=== PATIENT | male | born 1995 | race Caucasian/White ===

== ENCOUNTER → 2017-02-09 00:38 | Emergency (ER) | payer BC ==
[2017-02-09 02:20] LABS: Hematocrit 36 % (42-52); Hemoglobin 12.1 g/dl (14.0-18.0); Mean Corpuscular HGB Conc 34 g/dl (31-36); Mean Corpuscular Hemoglobin 31 pg (27-31); Mean Corpuscular Volume 92 fL (80-94); Mean Platelet Volume 9 um3 (7.4-10.4); Red Blood Count 3.86 10^6/ul (4.0-5.4); Red Cell Distribution Width 13 % (10.5-15); White Blood Count 9.4 10^3/ul (3.5-10.8)
[2017-02-09 02:33] LABS: Albumin 4.3 g/dL (3.2-5.2); BUN/Creatinine Ratio 9.9 (8-20); Calcium 8.8 mg/dL (8.6-10.3); EGFR Non-African American 107.3 (>60); Globulin 2.4 g/dL (2-4); Potassium 3.7 mmol/L (3.5-5.0); Total Bilirubin 0.4 mg/dL (0.2-1.0); Total Protein 6.7 g/dL (6.4-8.9)
--- NOTE | 2017-02-09 06:41 | ED ---
Lucy Barrett SooYoung, scribed for Allen Espinal MD on 02/09/17 at 0413 . Substance Abuse/Use - HPI Summary HPI Summary: LEVEL 5 CAVEAT - ETOH INTOXICATION, UNRESPONSIVE. A 21 y/o M presents to ED with ETOH intoxication. Per friend at bedside, pt did not have LOC; pt was gagging but not vomiting. She's unsure how much. Denies pt using drugs. 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 Infectious Disease History: No Infectious Disease History: Denies: Traveled Outside the [place] in Last 30 Days - Family History Family History: LEVEL 5 CAVEAT - ETOH INTOXICATION, UNRESPONSIVE. - Social History Occupation: Student Alcohol Use: Occasionally Substance Use Type: Reports: None Smoking Status (MU): Never Smoked Tobacco Review of Systems - ROS Summary Review of Systems Summary: LEVEL 5 CAVEAT - ETOH INTOXICATION, UNRESPONSIVE. Negative: Vomiting All Other Systems Reviewed And Are Negative: No Physical Exam - Summary Physical Exam Summary: The patient is well-nourished in no acute distress and in no acute pain. The skin is warm and dry and skin color reflects adequate perfusion. HEENT: The head is normocephalic and atraumatic. The pupils are equal and reactive. The conjunctivae are clear and without drainage. Nares are patent and without drainage. Mouth reveals moist mucous membranes and the throat is without erythema and exudate. The external ears are intact. The ear canals are patent and without drainage. The tympanic membranes are intact. Neck is supple with full range of motion and non-tender. There is no neck vein distension. Respiratory: Chest is non-tender. Lungs are clear to auscultation and breath sounds are symmetrical and equal. Cardiovascular: Heart is regular rate and rhythm. There is no murmur or rub auscultated. There is no peripheral edema and pulses are symmetrical and equal. Abdomen: The abdomen is soft and non-tender. There are normal bowel sounds heard in all four quadrants. Musculoskeletal: Extremities are non-tender with full range of motion. There is good capillary refill. There is no peripheral edema. Neurological: The patient has symmetrical motor strength in all four extremities. Cranial nerves are grossly intact. Triage Information Reviewed: Yes Vital Signs On Initial Exam: Initial Vitals BP 138/112 02/09/17 00:57 Vital Signs Reviewed: Yes - [place] Coma Scale Coma Scale Total: 14 Diagnostics - Vital Signs Vital Signs Temp Pulse Resp BP Pulse Ox 02/09/17 01:00 82 119/82 95 02/09/17 00:59 97.7 F 83 16 118/82 97 02/09/17 00:57 138/112 - Laboratory Lab Results: Lab Results 02/09/17 02/09/17 Range/Units 02:02 02:02 WBC 9.4 (3.5-10.8) 10^3/ul RBC 3.86 L (4.0-5.4) 10^6/ul Hgb 12.1 L (14.0-18.0) g/dl Hct 36 L (42-52) % MCV 92 (80-94) fL MCH 31 (27-31) pg MCHC 34 (31-36) g/dl RDW 13 (10.5-15) % Plt Count 180 (150-450) 10^3/ul MPV 9 (7.4-10.4) um3 Neut % (Auto) 85.4 H (38-83) % Lymph % (Auto) 9.8 L (25-47) % [place] % (Auto) 4.0 (1-9) % Eos % (Auto) 0.4 (0-6) % Baso % (Auto) 0.4 (0-2) % Absolute Neuts (auto) 8.1 H (1.5-7.7) 10^3/ul Absolute Lymphs (auto) 0.9 L (1.0-4.8) 10^3/ul Absolute Monos (auto) 0.4 (0-0.8) 10^3/ul Absolute Eos (auto) 0 (0-0.6) 10^3/ul Absolute Basos (auto) 0 (0-0.2) 10^3/ul Absolute Nucleated RBC 0 10^3/ul Nucleated RBC % 0 Sodium 138 (133-145) mmol/L Potassium 3.7 (3.5-5.0) mmol/L Chloride 106 (101-111) mmol/L Carbon Dioxide 25 (22-32) mmol/L Anion Gap 7 (2-11) mmol/L BUN 9 (6-24) mg/dL Creatinine 0.91 (0.67-1.17) mg/dL Est GFR ( Amer) 138.0 (>60) Est GFR (Non-Af Amer) 107.3 (>60) BUN/Creatinine Ratio 9.9 (8-20) Glucose 115 H (70-100) mg/dL Calcium 8.8 (8.6-10.3) mg/dL Total Bilirubin 0.40 (0.2-1.0) mg/dL AST 79 H (13-39) U/L ALT 46 (7-52) U/L Alkaline Phosphatase 41 (34-104) U/L Total Protein 6.7 (6.4-8.9) g/dL Albumin 4.3 (3.2-5.2) g/dL Globulin 2.4 (2-4) g/dL Albumin/Globulin Ratio 1.8 (1-3) Serum Alcohol 202 H (<10) mg/dL Result Diagrams: 02/09/17 02:02 02/09/17 02:02 Lab Statement: Any lab studies that have been ordered have been reviewed, and results considered in the medical decision making process. Course/Dx - Diagnoses Provider Diagnoses: Acute alcohol intoxication Discharge - Discharge Plan Condition: Stable Disposition: HOME Patient Education Materials: Abuse of Alcohol (ED) Referrals: [facility] [Primary Care Provider] - Additional Instructions: Follow up at the [facility] in 2 days. The documentation as recorded by the Lucy lundy SooYoung accurately reflects the service I personally performed and the decisions made by , Allen Espinal MD.
[2017-02-09 07:39] VITALS: BP 101/52
== END | disposition home or self-care (01) ==
LOC: ED 00:38
DX: F10.129 Alcohol abuse with intoxication, unspecified (principal); Y90.7 Blood alcohol level of 200-239 mg/100 ml
CPT/HCPCS: 36415; 80053; 80320; 85025; 99283; G0480

== ENCOUNTER 2017-09-01 00:21 | Emergency (ER) | payer BC ==
--- NOTE | 2017-09-01 01:04 | ED ---
Head Injury - HPI Summary HPI Summary: 22-year-old male presents with head injury José night. He states he has been nauseous. He states he had a little bit of alcohol. He did vomit once. He states he has been having difficulties concentrating. He admits to photophobia. He admits to dizziness. He denies any neck pain. He states he hit the back of his head. Also states though he also struck his nose. He denies any loss consciousness. He has not seen anyone about this since. He is concerned that he has a concussion. - History Of Current Complaint Chief Complaint: EDHeadInjury Stated Complaint: HEAD INJURY Time Seen by Provider: 09/01/17 00:46 Pain Intensity: 0 - Allergies/Home Medications Allergies/Adverse Reactions: Allergies Allergy/AdvReac Type Severity Reaction Status Date / Time No Known Allergies Allergy Verified 02/09/17 01:01 PMH/Surg Hx/FS Hx/Imm Hx Endocrine/Hematology History: Denies: Hx Anticoagulant Therapy Cardiovascular History: Denies: Hx Hypertension Infectious Disease History: No Infectious Disease History: Denies: Traveled Outside the [place] in Last 30 Days - Family History Known Family History: Negative: Seizure Disorder Family History: LEVEL 5 CAVEAT - ETOH INTOXICATION, UNRESPONSIVE. - Social History Alcohol Use: Occasionally Substance Use Type: Reports: None Smoking Status (MU): Never Smoked Tobacco Review of Systems Negative: Fever Negative: Chest Pain Negative: Shortness Of Breath Positive: Nausea Neurological: Other - dizziness Positive: Headache All Other Systems Reviewed And Are Negative: Yes Physical Exam Triage Information Reviewed: Yes Vital Signs On Initial Exam: Initial Vitals Temp Pulse Resp BP Pulse Ox 98.8 F 77 16 134/67 98 09/01/17 00:23 09/01/17 00:23 09/01/17 00:23 09/01/17 00:23 09/01/17 00:23 Vital Signs Reviewed: Yes Appearance: Positive: Well-Appearing Skin: Positive: Warm, Dry Head/Face: Positive: Normal Head/Face Inspection, Other - No step off, raccoon eyes, king sign Eyes: Positive: Normal, EOMI - with nystagmus, DEVNATE, Conjunctiva Clear ENT: Positive: Normal ENT inspection, Pharynx normal, TMs normal Respiratory/Lung Sounds: Positive: Clear to Auscultation, Breath Sounds Present Cardiovascular: Positive: Normal, RRR Abdomen Description: Positive: Nontender, Soft Bowel Sounds: Positive: Present Musculoskeletal: Positive: Normal Neurological: Positive: Sensory/Motor Intact, Alert, Oriented to Person Place, Time, CN Intact II-III, Heel to Toe, Finger to Nose Psychiatric: Positive: Normal - [place] Coma Scale Best Eye Response: 4 - Spontaneous Best Motor Response: 6 - Obeys Commands Best Verbal Response: 5 - Oriented Coma Scale Total: 15 Diagnostics - Vital Signs Vital Signs Temp Pulse Resp BP Pulse Ox 09/01/17 00:23 98.8 F 77 16 134/67 98 - Laboratory Lab Statement: Any lab studies that have been ordered have been reviewed, and results considered in the medical decision making process. Head Injury Course/Dx Course Of Treatment: 22-year-old male presents with head injury Friday night. He states he has been nauseous. He states he had a little bit of alcohol. He did vomit once. He states he has been having difficulties concentrating. He admits to photophobia. He admits to dizziness. He denies any neck pain. He states he hit the back of his head. Also states though he also struck his nose. He denies any loss consciousness. He has not seen anyone about this since. He is concerned that he has a concussion. On exan normal neuro exam with nystagmus with EOM. According to the [facility] CT rules no head imaging required. We'll have follow-up with [facility]. Patient has off tomorrow so can follow-up tomorrow. Patient understands and agrees with plan. - Diagnoses Differential Diagnosis/HQI/PQRI: Concussion Without LOC, Contusion, Intracranial Bleed Provider Diagnoses: Head injury Discharge - Discharge Plan Condition: Good Disposition: HOME Patient Education Materials: Concussion (ED) Referrals: [facility] [Primary Care Provider] - Additional Instructions: Place ice on area as needed Take Tylenol or ibuprofen for headache every 6 hours Modify activities as tolerated Follow up with [facility] within 3 days Return to ED if develop vomiting, severe headache, or any new or worsening symptoms
[2017-09-01 01:12] VITALS: BP 121/69
== END 2017-09-01 01:11 | disposition home or self-care (01) ==
LOC: ED 00:21
DX: S09.90XA Unspecified injury of head, initial encounter (principal); R51 Headache; R11.0 Nausea; W22.8XXA Striking against or struck by other objects, initial encounter; Y92.9 Unspecified place or not applicable; R42 Dizziness and giddiness
CPT/HCPCS: 99281